=== PATIENT | male | born 1955 | race Caucasian/White ===

== ENCOUNTER 2023-09-03 14:13 | Emergency (ER) | payer MEDICARE, OTHER, SELFPAY ==
[2023-09-03] VITALS (14 sets, daily range): BP systolic 140–150; BP diastolic 84–88; PULSE 74–91; RESP 14–20; TEMP 36.9; O2SAT 94–100
--- NOTE | ~2023-09-03 | XR_ITS ---
XR chest 2V DATE: 09/03/2023 15:05 INDICATION: Cough, shortness of breath. Shortness of breath with exertion for 2 weeks. TECHNIQUE: PA and lateral views COMPARISON: None FINDINGS: Bilateral pulmonary hyperinflation with increased retrosternal airspace and relative flatte elena the diaphragm, consistent with chronic obstructive pulmonary disease. No pulmonary infiltrate or consolidation, pleural effusion or pulmonary vascular congestion or pneumo thorax is detected. Normal heart size. No hilar or mediastinal enlargement is noted. There is mild thoracic levoscoliosis. IMPRESSION: COPD Reviewed, dictated and finalized at location B. H OPERATOR IMPRESSION: COPD
--- NOTE | ~2023-09-03 | CT_ITS ---
EXAMINATION: CTA chest PE protocol DATE: 09/03/2023 17:36 INDICATION: shortness of breath TECHNIQUE: Computed tomography angiography (CTA) of the chest was performed with 100 mL Omnipaque-350 intravenous contrast timed to evaluate the pulmonary arteries. Coronal maximum intensity projection 3D-reconstructions were created by the technologist. The dose-length product (DLP) was 219.98 mGy-cm. Automated exposure control and iterative reconstruction technique were employed. COMPARISON: X-ray chest, same date. FINDINGS: Lung parenchyma and airways: Biapical pleural scarring. Senescent/emphysematous change. Pleura: Unremarkable. Thoracic inlet, axillae and chest wall: Unremarkable. Thoracic aorta: Mild atherosclerotic calcification. Mediastinum: Normal. Heart and pericardium: Normal. Coronary artery calcifications: Mild. Upper abdomen: No significant finding. Bones: No acute osseous finding. Pulmonary arteries: Study quality: Adequate. No pulmonary emboli detected. IMPRESSION: No CT evidence of acute pulmonary embolus. No acute intrathoracic process detected. Reviewed, dictated and finalized at location K. TERIA ASSOCIATE
[2023-09-03 15:36] LABS: Influenza A QL RT-PCR Negative (Negative); Influenza B QL RT-PCR Negative (Negative); RSV RNA, RT-PCR Negative (Negative); SARS-CoV-2 RNA PCR Negative (Negative)
--- NOTE | 2023-09-03 15:46 | ECG_ITS ---
Measurements Intervals [place] Rate: 85 P: 81 DE: 145 QRS: 86 QRSD: 95 T: 77 QT: 357 QTc: 427 Interpretive Statements SINUS RHYTHM BASELINE ARTIFACT- I, III, AVR, AVL, AVF NORMAL ECG NO PREVIOUS ECG AVAILABLE FOR COMPARISON Electronically Signed On 09-03-2023 16:31:30 INTERNATIONAL TRADE TEACHER by Mikhail Butcher D.O.
--- NOTE | 2023-09-03 16:02 | ED.SOB ---
HPI - SOB/Dyspnea General Chief Complaint: Shortness of Breath/Dyspnea Stated Complaint: sob Time Seen by Provider: 09/03/23 15:44 Source: patient Mode of arrival: ambulatory Limitations: no limitations History of Present Illness HPI Narrative: 68-year-old male with history of Hodgkin's lymphoma on suppressive therapy presenting with shortness of breath ongoing for the last few weeks. He says he gets short of breath when he exerts himself but otherwise has no complaints. Occasionally has had a cough and some congestion. No history of smoking but he has been around a lot of grain his whole life as he is a morales. No fevers. Related Data Home Medications Medication Instructions Recorded Confirmed multivitamin,[id number] 1 tablet PO DAILY 09/04/19 10/09/19 (Complete Multivitamin tablet) Allergies Allergy/AdvReac Type Severity Reaction Status Date / Time No Known Allergies Allergy Verified 09/03/23 14:44 Review of Systems Review of Systems: All systems reviewed & are unremarkable except as noted in HPI and below (HPI) [facility] Family History Family History Father Hypertension Social History Social History Smoking status: Never smoker Alcohol intake: never Substance use: never Substance use type: does not use Living arrangements: with family Exam Narrative: Constitutional: Generally well appearing, no acute distress Head: Atraumatic, no deformities. Eyes: Pupils equal, round, and reactive to light. Neck: Supple, no tracheal deviation, no JVD. ENMT: Mucous membranes moist Cardiovascular: S1, S2 auscultated. No murmurs, rubs, or gallops. No S3/S4. Normal Distal pulses. No peripheral edema. Respiratory: Lung sounds slightly diminished but equal. No wheezes, rales, or rhonchi. Gastrointestinal: Abdomen was soft and non-tender. Non-distended. No rebound or guarding. Genitourinary: Deferred Musculoskeletal: Normal muscle tone and bulk. No obvious deformities or tenderness over extremities. Skin: No rashes. Neurological: Strength 5/5 in extremities. Cranial nerves I-XII grossly intact. Distal sensation intact. Mental Status: Awake, alert and oriented x3. Follows commands Course Vital Signs Vital signs: Vital Signs Temperature 36.9 C 09/03/23 14:40 Pulse Rate 91 09/03/23 14:40 Respiratory Rate 20 09/03/23 14:40 Blood Pressure 150/85 H 09/03/23 14:40 Pulse Oximetry 100 09/03/23 14:40 Oxygen Delivery Room Air 09/03/23 14:40 Temperature 36.9 C 09/03/23 14:40 Pulse Rate 74 09/03/23 16:11 Respiratory Rate 14 09/03/23 16:08 Blood Pressure 150/85 H 09/03/23 14:40 Pulse Oximetry 100 09/03/23 16:10 Oxygen Delivery Room Air 09/03/23 16:10 MDM - SOB/Dyspnea MDM Narrative Medical decision making narrative: 68-year-old male presenting with shortness of breath on exertion for the last few weeks. On exam he is slightly hypertensive vitals are otherwise regular. Saturating 100% on room air. No respiratory distress at all. He got a breathing treatment prior to me seeing him and his lungs sound quite clear, slightly diminished but no significant abnormalities. No signs of fluid overload. Concern for potentially COPD his chest x-rays reading COPD as the cause, possibly could be CHF, ACS or heart failure. Given breathing treatment and some dexamethasone. Obtaining D-dimer, cardiac workup on patient. EKG obtained at 4:21 p.m. shows sinus rhythm, normal intervals, no ST elevations or depressions. Impression: No STEMI Labs, imaging reviewed and interpreted. D-dimer elevated so I did obtain a CTA chest. Labs show no focal abnormalities. CTA does show evidence of pulmonary scarring and likely COPD. Patient has a long-time morales reports a long history of inhaling grain dust. Never a smoker. Suspect likely pulmonary fibrosis versus COPD in this
--- NOTE | 2023-09-03 16:10 | PCRCNOTE ---
Duoneb Tx. given at 1600. Unable to scan in medication.
[2023-09-03 16:35] LABS: D Dimer 2.64 ug/mL (<0.48)
--- NOTE | 2023-09-03 16:38 | PC.NURSE ---
pt ambulated with tech and O2 sat was 100% the entire time with steady gait and no assist
[2023-09-03 16:39] LABS: Basophils Percent Auto 0.6 % (0.2-1.2); Eosinophils Absolute Auto 0.1 K/mm3 (0-0.3); Hematocrit 39.4 % (42.0-52.0); Hemoglobin 12.7 g/dL (14.0-18.0); Immature Granulocyte Absolute 0.05 K/mm3 (0.00-0.031); Lymphocytes Absolute Auto 0.66 K/mm3 (0.9-3.2); Lymphocytes Percent Auto 12.7 % (18.3-44.2); Mean Corpuscular HGB Conc 32.2 g/dl (32-36); Mean Corpuscular Hemoglobin 33.3 pg (26-34); Mean Corpuscular Volume 103.4 fl (80-100); Mean Platelet Volume 9.4 fl (7.4-10.4); Monocytes Absolute Auto 0.6 K/mm3 (0.1-0.6); Monocytes Percent Auto 12.4 % (2.6-8.5); Neutrophils Absolute Auto 3.8 K/mm3 (1.3-6.7); Neutrophils Percent Auto 72.3 % (45.5-73.1); Platelet Count Result 213 k/mm3 (150-375); Red Blood Count 3.81 M/mm3 (4.6-6.20); Red Cell Distribution Width 11.6 % (11.5-14.5); White Blood Count 5.2 K/mm3 (4.5-10.0)
[2023-09-03] MEDS: SODIUM CHLORIDE 0.9% IV 1,000 ML 999 ML IV CONT (16:41)
[2023-09-03 16:58] LABS: Alanine Aminotransferase 16 U/L (6-50); Albumin Level 4.1 g/dL (3.5-5.1); Alkaline Phosphatase 58 U/L (38-126); Anion Gap 8 mmol/L (8-16); Aspartate Amino Transferase 25 U/L (17-59); Bilirubin,Total 1.3 mg/dL (0.2-1.3); Blood Urea Nitrogen 22 mg/dL (9-20); Calcium 8.9 mg/dL (8.4-10.2); Carbon Dioxide 26 mmol/L (22-30); Chloride 103 mmol/L (98-107); Estimated CRCL calculation 56 ml/min; Estimated Glomerular Filt Rate > 60; Glucose 81 mg/dL (65-110); Potassium 4.1 mmol/L (3.4-5.0); Sodium 137 mmol/L (137-145)
[2023-09-03 17:07] LABS: NT Pro B Type Natriuretic Pept 88 pg/mL (19.9-100)
[2023-09-03] MEDS: IPRATROPIUM 0.5 MG/ALBUTEROL SULFATE 2.5 MG AMPUL.NEB 3 ML INHALATION (17:30)
== END 2023-09-03 18:40 | disposition home or self-care (01) ==
PROVIDERS: Emergency Medicine; Emergency Provider Emergency Medicine
DX: J84.10 Pulmonary fibrosis, unspecified (principal); Z20.822 Contact with and (suspected) exposure to COVID-19; Z85.71 Personal history of Hodgkin lymphoma
CPT/HCPCS: 36415; 71046; 71275; 80053; 83880; 85025; 85380; 87637; 93005; 94640; 96361; 96374; 99284; J1100; J7030; Q9967

== ENCOUNTER 2024-05-23 14:32 | Emergency (ER) | payer MEDICARE, OTHER, SELFPAY ==
--- NOTE | ~2024-05-23 | XR_ITS ---
EXAM: XR finger 5th RT min 2V DATE: 05/23/2024 14:52 HISTORY: amputation DISTAL 5TH . COMPARISON: None available. FINDINGS: Detail obscured by overlying bandage material. This digit distal phalange amputation, with a small distal phalange fragment remaining along the dorsal aspect of the middle phalange. Otherwise , no fracture or dislocation. Mild scattered degenerative change IMPRESSION: Near-complete right fifth distal phalange amputation. Reviewed, dictated and finalized at location K.
[2024-05-23 14:36] VITALS: BP 135/73; PULSE 87; RESP 16; TEMP 36.6; O2SAT 99
--- NOTE | 2024-05-23 14:45 | ED.WOUNDLAC ---
HPI - Wound/Laceration General Chief Complaint: Wound/Laceration Stated Complaint: finger vs equipment Time Seen by Provider: 05/23/24 14:45 Focused HPI: This is a 68-year-old male that presents to the emergency department for right 5th finger injury. Reports he amputated the tip of his finger and farming equipment. He is not up-to-date on tetanus vaccination. GENERAL: Well-appearing, well-nourished, and in no acute distress. HEAD: Normocephalic, atraumatic. CHEST: Clear to auscultation. ?No respiratory distress. HEART: Regular rate and rhythm.? NEURO: ?Alert and oriented x3. Patient screened in triage and initial orders placed.? ?Additional care and disposition to be based upon?diagnostic testing and treatment. Related Data Home Medications Medication Instructions Recorded Confirmed multivitamin,[id number] 1 tablet PO DAILY 09/04/19 10/09/19 (Complete Multivitamin tablet) Allergies Allergy/AdvReac Type Severity Reaction Status Date / Time No Known Allergies Allergy Verified 05/23/24 15:05 Review of Systems Review of Systems: CONSTITUTIONAL: Denies fever SKIN: Reports laceration All systems reviewed & are unremarkable except as noted in HPI and below PMFSH Past Medical History Medical History (Updated 05/23/24 @ 16:08 by Cortney Izquierdo PA-C) No active medical problems Family History Family History Father Hypertension Social History Social History Smoking status: Never smoker Alcohol intake: never Substance use: never Substance use type: does not use Living arrangements: with family Exam Narrative: GENERAL: Well-appearing, well-nourished, and in no acute distress. HEAD: Normocephalic, atraumatic. EYES: EOMI. EXTREMITIES: Decreased active ROM in the right 5th finger with complete amputation of the distal phalanx SKIN: Warm, dry, no rash. NEURO: No focal deficits. Alert and oriented x3. PSYCH: Normal mood and affect Course Course Emergency Course: patient and family in agreement with plan of care Consultations Consultation #1: Spoke with Lucia, plastic surgeon, Dr. Ayala, recommends transfer to the ER Date: 05/23/24 Consultation #2: Spoke with ER Dr. Gomez who accepts patient as transfer to [place] Date: 05/23/24 Vital Signs Vital signs: Vital Signs Temperature 97.8 F 05/23/24 14:36 Pulse Rate 87 05/23/24 14:36 Respiratory Rate 16 05/23/24 14:36 Blood Pressure 135/73 05/23/24 14:36 Pulse Oximetry 99 05/23/24 14:36 Temperature 97.8 F 05/23/24 14:36 Pulse Rate 87 05/23/24 14:36 Respiratory Rate 16 05/23/24 14:36 Blood Pressure 135/73 05/23/24 14:36 Pulse Oximetry 99 05/23/24 14:36 MDM - Wound/Laceration MDM Narrative Medical decision making narrative: Patient presents the emergency department for amputation of his right 5th finger distal phalanx. Patient's wound was irrigated and covered with a bandage. He was updated on tetanus vaccination and given a dose of Ancef. We do not have Hand surgery online marketing analyst today. Transfer has been arranged to [place] ER for further management by specialist Differential Diagnosis Differential diagnosis: Likely laceration, avulsion of skin and other ( amputation) Imaging Data Radiologist's impression: ITS Impressions Finger X-Ray 05/23/24 15:03 IMPRESSION: Near-complete right fifth distal phalange amputation. Critical Care Time Critical Care Time Critical Care Time: No Discharge Plan Discharge Clinical Impression: Amputated finger Patient Disposition: Acute Care Hospital Condition: Stable Additional Instructions: Report directly to [place] ER for further management by hand surgeon. Do not eat or drink Prescriptions: No Action Complete Multivitamin Tablet 1 tablet PO DAILY albuterol sulfate 90 mcg/actuation HFA
[2024-05-23] MEDS: WATER, STERILE FOR INJECTION 10 ML VIAL XX (15:12)
[2024-05-23] MEDS: ceFAZolin SODIUM 1 GM VIAL IM (15:12)
[2024-05-23] MEDS: TETANUS,DIPHTHERIA,AC PERTUSSIS ADULT (0.5 ML) BOOSTRIX IM (15:12)
--- NOTE | 2024-05-23 15:55 | PC.NURSE ---
Pt declines to go to [facility] via ems. is going to drive pt to [place].
== END 2024-05-23 16:11 | disposition short-term general hospital (02) ==
PROVIDERS: Emergency Provider Physician Assistant
DX: S68.126A Partial traumatic metacarpophalangeal amputation of right little finger, initial encounter (principal); W30.9XXA Contact with unspecified agricultural machinery, initial encounter; Z23 Encounter for immunization
CPT/HCPCS: 73140; 90471; 90715; 96372; 99283; J0690

== ENCOUNTER 2024-12-01 07:09 | Emergency (ER) | payer MEDICARE, OTHER, SELFPAY ==
--- NOTE | ~2024-12-01 | XR_ITS ---
EXAM/PROCEDURE: XR chest 2V - 12/01/2024 07:59 CDT HISTORY: 69 years old Male with LT sided cp X2 days TECHNIQUE: Two view(s) of the chest. COMPARISON: 09/03/2023 FINDINGS: LUNGS/ PLEURA: Lungs are hyperinflated with flattening of the diaphragm and increased lung markings i n both upper lobes, findings seen with COPD. No focal consolidation. No appreciable pneumothorax or l arge pleural effusion. Mild perihilar bronchial wall thickening may represent bronchiolitis. Airspace opacity in the left lingular area may represent pneumonia in appropriate clinical settings. HEART/ MEDIASTINUM: Heart appears normal in size. BONES: Degenerative changes. OTHER: Visualized upper abdomen is unremarkable. IMPRESSION: 1. Airspace opacity in the left lingular area may represent pneumonia in appropriate clinical settin gs. Clinical correlation is recommended. Short-term follow-up chest radiograph is recommended after a ppropriate clinical therapy. 2. Findings concerning for bronchiolitis. Reviewed, dictated and finalized at location [facility]. IMPRESSION: 1. Airspace opacity in the left lingular area may represent pneumonia in appro priate clinical settings. Clinical correlation is recommended. Short-term follo w-up chest radiograph is recommended after appropriate clinical therapy. 2. Findings concerning for bronchiolitis.
--- NOTE | ~2024-12-01 | CT_ITS ---
Clinical Indication: Chest pain, lymphoma CT Scan of the Chest with Contrast: Technique: Contiguous sections were acquired throughout the chest after intravenous administration of 100 cc of Omnipaque 350. Dose reduction technique was used on this scan by utilizing automated expos ure control and iterative reconstruction technique. The dose-length product (DLP) was 210.24 mGy-cm. COMPARISON: 09/03/2023 Findings: There is no evidence of any significant mediastinal, hilar or axillary lymphadenopathy. There is no f illing defect in the pulmonary arterial tree to suggest pulmonary embolus. There is no evidence of ao rtic dissection or aneurysm. Minimal left pleural effusion present. No right pleural effusion. No pericardial effusion. Lingular consolidation is present, suspicious for pneumonia. Probable focal pneumonia or atelectasis in the anteromedial, inferior right middle lobe. Images through the upper abdomen reveal no abnormalities. Impression: No evidence of pulmonary embolus, aortic dissection, or aortic aneurysm. Lingular pneumonia. Probable focal additional pneumonia right middle lobe versus focal atelectasis. Minimal left pleural effusion. Reviewed, dictated and finalized at [facility]. Impression: No evidence of pulmonary embolus, aortic dissection, or aortic aneurysm. Lingular pneumonia. Probable focal additional pneumonia right middle lobe versu s focal atelectasis. Minimal left pleural effusion.
--- NOTE | 2024-12-01 07:12 | ECG_ITS ---
Test Date: 2024-12-01 07:19:09 Measurements Intervals [place] Rate: 93 P: 92 DC: 141 QRS: 87 QRSD: 94 T: 75 QT: 336 QTc: 419 Interpretive Statements SINUS RHYTHM POSSIBLE LEFT ATRIAL ENLARGEMENT BASELINE ARTIFACT- I, II, III, AVR, AVL, V1-V2 BORDERLINE ECG No previous ECG available for comparison Electronically Signed On 12-01-2024 08:19:22 CDT by Mikhail Butcher D.O.
--- OUTSIDE RECORDS SUMMARY | 2024-12-01 07:12 | XMS_ITS | Referral Summary ---
Author Organization [facility] Address [address] [place] [address] Care Team Providers Care Market Intelligence Consultant Name Role Phone No, Physician Primary Care Provider [phone] Allergies No known active allergies Medications acyclovir (ZOVIRAX) 400 mg tabletIndications: Other types of follicular lymphoma, unspecified site (HCC),Persons encountering health services in other specified circumstances TAKE 1 TABLET (400 MG TOTAL) BY MOUTH 2 (TWO) TIMES A DAY FOR SHINGLES PREVENTION. 180 tablet 3 4 Active albuterol HFA (PROVENTIL HFA,VENTOLIN HFA,PROAIR HFA) 90 mcg/actuation inhaler INHALE ONE PUFF FOUR TIMES DAILY NEEDED FOR SHORTNESS OF BREATH OR WHEEZING 4 Active multivit,calc,min/ FA/K1/lycop (ONE-A-DAY MEN'S COMPLETE ORAL) Take by mouth A ctive bacitracin 500 unit/gram ointment Apply topically daily 120 g 4 Active Active Problems Problem Noted Date Diagnosed Date Need for immunization against influenza 07/06/20 24 SOB (shortness of breath) 10/05/2023 LAD (lymphadenopathy) 07/14/2023 Other types of follicular lymphoma, unspecified site 07/03/2021 Persons encountering health services in other specified circumstances 07/03/2021 Cervicalgia 11/25/2011 Immunizations Immunization Administration Dates Next Due Influenza, Quadrivalent, Seema l Culture-based MDCK, Preservative Free, Antibiotic Free, Intramuscular 07/08/2023,06/12/2021 Influenza, Quadrivalent, Hig h Dose, Preservative Free, Intrr 06/28/2022 Influenza, Trivalent, High D ose, Split, Preservative Free, Intramuscular 07/06/2024 Moderna SARS-CoV-2 Monovalent Vaccination (12+ Y RS) 11/12/2020,10/15/2020 Pfizer SARS-CoV-2 Monovalent Vaccination (12+ Yrs) PURPLE 06/25/2021 Pneumococcal Conjugate PCV 13 07/03/2021 Social History Tobacco Use Types Packs/Day Years Used Date Smoking Tobacco: Never Smokeless Tobacco: Former Tobacco Cessation:Counseling Given: Not Answered Alcohol Use Standard Drinks/Week Comments Never 0 (1 standard drink = 0.6 oz pur e alcohol) AUDIT-C Answer Date Recorded Q1: How often do you have a drink containing alcohol? Never 07/28/2023 Q2: How many drinks containi ng alcohol do you have on a typical day when you are drinking? Patient does not drink Frequency of Binge Drinking Not on file 01/2023 Personal Safety Answer Date Recorded Have you ever been in or are you currently in a harmful physical or emotional relationship or is someone making you feel afraid or unsafe? 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 Gender Identity Male 01/30/2021 8:20 PM CDT Sexual Orientation Straight 01/30/2021 8: 20 PM CDT Last Filed Vital Signs Vital Sign Reading Time Taken Comments Blood Pressure 144/77 07/06/2024 10:15 AM POTTERY KILN BUILDER Pulse 75 07/06/2024 10:15 AM POTTERY KILN BUILDER Temperature 36.6 C (97.9 F) 07/06/2024 10:15 AM POTTERY KILN BUILDER Respiratory Rate 18 07/06/2024 10:15 AM POTTERY KILN BUILDER Oxygen Saturation 98% 07/06/2024 10:15 AM POTTERY KILN BUILDER Inhaled Oxygen Concentration - - Weight 63.3 kg (139 lb 9.6 oz) 07/06/2024 10:15 AM POTTERY KILN BUILDER Height 180.3 cm (5' 11 ) 05/23/2024 5:05 PM CDT Body Mass Index 19.47 05/23/2024 5:05 PM CDT Plan of Treatment Not on file Procedures Procedure Name Priority Date/Time Associated Diagnosis Comments HEPATITIS C ANTIBODY Routine 06/12/2021 7:02 AM CDT Lymphadenopathy from Last 3 Months or Most Recently Relevant to Health Maintenance Results * Hepatitis C antibody (06/12/2021 7:02 AM CDT) Hep C Ab Nonreactive Nonreactive JOSE HOLLY Comment:Antibodies to HCV no t detected. Does NOT exclude the possibility of recent exposure to HCV. Blood 06/12/2021 7:02 AM CDT 06/12/2021 8:04 AM CDT us Suzanne Bond NP LAB MICROBIOLOGY - GENERAL ORDERABLES Edited Result - Final [facility] Department [place] [address] from Last 3 Months or Most Recently Relevant to Health Maintenance Insurance MEDICARE [facility] MEDICARE MEDICARE Member Subscriber Plan / Payer (Ef fective 2021-Present) Name:[place] Member ID:[id number] Relation to Subscriber:Self Name:[place] Subscriber ID:[id number] Payer ID:[id number] Group ID:Not on file Type:MEDICARE TRADITIONAL Address: [place] [address] [facility] MEDIC[facility] Advance Directives For more information, please contact: [phone] * Full Code (Latest Code Status on File) Date Activated Date Inactivated Comments 05/21/2021 8:36 AM 05/22/2021 4:53 AM * Full Code Date Activated Date Inactivated Comments 05/21/2021 8:36 AM 05/21/2021 8:36 AM Care Teams Market Intelligence Consultant Relationship Specialty Start Date End Date No, Physician PCP - General 03/27/21
--- OUTSIDE RECORDS SUMMARY | 2024-12-01 07:12 | XMS_ITS | Clinical Summary ---
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 N/A Medical History Medical History Date Comments Cancer (HCC) Non Hodgkin's lymphoma (HCC) Family History Medical History Relation Name Comments false prostate cancer/ surgery/ 24hrs after going home Brother 1 No Known Problems Brother 2 No Known Problems Brother 3 No Known Problems Brother 4 Alzheimer's disease Father Kidney failure Mother ?stomach/intestine problem Sister 1 Relation Name Status Comments Brother 1 Brother 2 Alive Brother 3 Alive Brother 4 Alive Father Mother Sister 1 Alive Sister 2 Alive Sister 3 Alive Sister 4 Alive Social History Tobacco Use Types Packs/Day Years [...] on file Legal Sex Male 1:09 PM WIRE SAWYER Gender Identity Male 01/30/2021 8:20 PM CDT Sexual Orientation Straight 01/30/2021 8: 20 PM CDT Obstetrics History Last Filed Vital Signs Vital Sign Reading Time Taken Comments Blood Pressure 144/77 07/06/2024 10:15 AM WIRE SAWYER Pulse 75 07/06/2024 10:15 AM WIRE SAWYER Temperature 36.6 C (97.9 F) 07/06/2024 10:15 AM WIRE SAWYER Respiratory Rate 18 07/06/2024 10:15 AM WIRE SAWYER Oxygen Saturation 98% 07/06/2024 10:15 AM WIRE SAWYER Inhaled Oxygen Concentration - - Weight 63.3 kg (139 lb 9.6 oz) 07/06/2024 10:15 AM WIRE SAWYER Height 180.3 cm (5' 11 ) 05/23/2024 5:05 PM CDT Body Mass Index 19.47 05/23/2024 5:05 PM CDT Plan of Treatment Health Maintenance Due Date Last Done Comments Colon Cancer Screening-Colonoscopy 1955 Depression Screening 1955 DTaP/Tdap/Td Vaccine (1 - Tdap) 1964 Hepatitis B Screening 1971 Zoster Vaccine (1 of 2) 1972 Well Visit 65+ 2018 Pneumococcal vaccine 65+ (2 of 2 - PPSV23) 08/28/2021 07/03/2021 Covid-19 Vaccine (5 - 2023-2 5 season) 2024 06/28/2022, 06/25/2021, 11/12/2020, Additional history exists Fall Risk Assessment 07/28/2024 07/28/2023 Hepatitis C Screening Completed 06/12/2021 Influenza Vaccine Completed 07/06/2024, , 06/28/2022, Additional history exists Procedures Procedure Name Priority Date/Time Associated Diagnosis [...] 7:02 AM CDT 06/12/2021 8:04 AM CDT Suzanne Bond NP LAB MICROBIOLOGY - GENERAL ORDERABLES Edited Result - Final [facility] Department [place] [address] from Last 3 Months or Most Recently Relevant to Health Maintenance Insurance MEDICARE [facility] MEDICARE MEDICARE [facility] MEDICARE Advance Directives For more information, please contact: [phone] * Full Code (Latest Code Status on File) Date Activated Date Inactivated Comments 05/21/2021 8:36 AM 05/22/2021 4:53 AM * Full Code Date Activated Date Inactivated Comments 05/21/2021 8:36 AM 05/21/2021 8:36 AM Care Teams Patient Escort Relationship Specialty Start Date End Date No, Physician PCP - General 03/27/21
--- OUTSIDE RECORDS SUMMARY | 2024-12-01 07:12 | XMS_ITS | Encounter Summary ---
Author Organization [facility] Address [address] [place] [address] Phone Care Team Providers Care Sales And Distribution Clerk Name Role Phone No, Physician Primary Care Provider [phone] Encounter Details Date Type Department Care Team (Late st Contact Info) Description 06/10/2021 Telephone [facility] Oncology [address] [facility] 7th [place] [address] [place] [address] Suzanne Bond, JEROME [address] [place] [address] Social History Tobacco Use Types Packs/Day Years Used Date Smoking Tobacco: Never Smokeless Tobacco: Never Sex and Gender Information Value Date Recorded Sex Assigned at Not on file 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
--- OUTSIDE RECORDS SUMMARY | 2024-12-01 07:12 | XMS_ITS ---
Author Organization [facility] Address [address] [place] [address] Care Team Providers Care Corner Former Name Role Phone No, Physician Primary Care Provider [phone] Active Problems Problem Noted Date Diagnosed Date Need for immunization against influenza 07/06/20 SOB (shortness of breath) 10/05/2023 LAD (lymphadenopathy) 07/14/2023 Other types of follicular lymphoma, unspecified site 07/03/2021 Persons encountering health services in other specified circumstances 07/03/2021 Cervicalgia 11/25/2011 Current Treatment and Therapy Plans RiTUXimab Maintenance Every 12 Weeks - Lymphoma* Plan Start Date:02/19/2022 Plan Provider:Susan Gotti MD Linked Problems Other types of follicular ly mphoma, unspecified site (HCC)Persons encountering health services in other specified circumstances Treatment Medications riTUXimab-abbs (TRUXIMA) IVPB in 500 mLr iTUXimab-pvvr (RUXIENCE) IVPB in 500 mL Other Current Plans 2023 - 2024 Influenza Vaccine ([facility])* Plan Start Date: 07/06/2024 Plan Provider:Nisha Ramirez MD Linked Problems Need for immunization agains t influenza Treatment Medications No medications scheduled. Past Treatment and Therapy Plans Line Care Plan Name Start Date Discontinue Date Treatment Medications Discontinue Reason Plan Provider IV MAINTENANCE THERAPY PLAN 11/27/2021 11/02/2023 No medications scheduled. Automatic discontinuation of dormant plans Shyanne Anderson MD Oncology Chemotherapy Treatment Plan Name Start Date Discontinue Date Treatment Medications Discontinue Reason Plan Provider Cycles Bendamustine / RiTUXimab 28 Day Cycles 07/10/20 21 01/05/2022 bendamustine (BENDEKA) IVPB in 50 mLriTUXimab-pv vr (RUXIENCE) IVPB in 500 mL Therapy Complete Susan Gotti MD 6 of 6 cycles completed Specialty Infusion Treatment Plan Name Start Date Discontinue Date Treatment Medications Discontinue Reason Plan Provider Evusheld 300 mg/300 mg Standard Dose 02/19/2022 10/19/2022 No medications scheduled. Orders Susan Gotti MD Lifetime Dose Tracking * Chemical Lifetime Dose Automatic Entry Manual Entr y DLP 149 mGycm 149 mGycm 0 mGycm
[2024-12-01 07:16] VITALS: BP 156/81; PULSE 90; PULSE 92; RESP 18; RESP 19; TEMP 36.6; O2SAT 95; O2SAT 98
[2024-12-01 07:24] VITALS: O2SAT 100
[2024-12-01 07:25] VITALS: O2SAT 99
[2024-12-01 07:29] VITALS: PULSE 92
[2024-12-01 07:49] LABS: Basophils Percent Auto 0.2 % (0.2-1.2); Eosinophils Percent Auto 0.4 % (0-4.4); Hematocrit 40.6 % (42.0-52.0); Hemoglobin 13.4 g/dL (14.0-18.0); Immature Granulocyte Absolute 0.06 K/mm3 (0.00-0.031); Immature Granulocyte Percent A 0.6 % (0-0.5); Lymphocytes Absolute Auto 0.73 K/mm3 (0.9-3.2); Lymphocytes Percent Auto 6.9 % (18.3-44.2); Mean Corpuscular Hemoglobin 33.1 pg (26-34); Mean Corpuscular Volume 100.2 fl (80-100); Mean Platelet Volume 10.1 fl (7.4-10.4); Neutrophils Absolute Auto 8.8 K/mm3 (1.3-6.7); Neutrophils Percent Auto 82.9 % (45.5-73.1); Platelet Count Result 223 k/mm3 (150-375); Red Blood Count 4.05 M/mm3 (4.6-6.20); White Blood Count 10.7 K/mm3 (4.5-10.0)
[2024-12-01 07:56] LABS: Alanine Aminotransferase 15 U/L (6-50); Albumin Level 4.1 g/dL (3.5-5.1); Alkaline Phosphatase 70 U/L (38-126); Anion Gap 6 mmol/L (4-12); Aspartate Amino Transferase 22 U/L (17-59); Bilirubin,Total 1.7 mg/dL (0.2-1.3); Blood Urea Nitrogen 17 mg/dL (9-20); Calcium 8.9 mg/dL (8.4-10.2); Carbon Dioxide 31 mmol/L (22-30); Chloride 100 mmol/L (98-107); Estimated CRCL calculation 55 ml/min; Estimated Glomerular Filt Rate > 60; Glucose 109 mg/dL (65-110); Lipase 50 U/L (23-300); Potassium 4.6 mmol/L (3.4-5.0); Sodium 137 mmol/L (137-145)
[2024-12-01 08:16] LABS: Partial Thromboplastin Time 27.2 Seconds (22.3-36.8); Troponin I < 0.012 ng/mL (0.000-0.034)
[2024-12-01 08:20] LABS: NT Pro B Type Natriuretic Pept 93 pg/mL (19.9-100)
[2024-12-01 08:31] LABS: D Dimer 2.65 ug/mL (<0.48)
--- NOTE | 2024-12-01 08:51 | ED.GENADULT ---
HPI - General Adult General Chief complaint: Chest Pain Stated complaint: chest pain, cough pain worse with cough Time Seen by Provider: 12/01/24 07:16 History of Present Illness HPI narrative: This is a 69-year-old male with history of lymphoma in remission presenting for chest pain. Patient has been having a cough for the last 1 week. He has not developed left-sided chest pain. He denies fevers chills, shortness of breath abdominal pain or urinary symptoms. No history of DVT or PE. No acute edema of the lower extremities. Related Data Home Medications ?Medication ?Instructions ?Recorded ?Confirmed ?Last Taken ?Type multivitamin,[id number] 1 tablet PO DAILY 09/04/19 10/09/19 09/13/19 History (Complete Multivitamin tablet) Allergies Allergy/AdvReac Type Severity Reaction Status Date / Time No Known Allergies Allergy Verified 05/23/24 15:05 [facility] Past Medical History Medical History No active medical problems Family History Family History Father Hypertension Social History Social History Smoking status: Never smoker Alcohol intake: never Substance use: never Substance use type: does not use Living arrangements: with family Exam Narrative: APPEARANCE: No apparent distress. Head: atraumatic. EYES: EOMI, NOSE: Atraumatic NECK: Trachea midline RESPIRATORY: No increased rate of breathing CTAB, speaking in full sentences, 100% on room air CARDIOVASCULAR: RRR, no peripheral edema ABDOMINAL: Non-distended soft nontender MUSCULOSKELETAl: No obvious deformities NEURO: Alert. Moving 4/4 extremities SKIN:: Warm, dry. Normal color PSYCHIATRIC: Normal affect Course Vital Signs Vital signs: Vital Signs Temperature 97.8 F 12/01/24 07:16 Pulse Rate 90 12/01/24 07:16 Respiratory Rate 18 12/01/24 07:16 Blood Pressure 156/81 H 12/01/24 07:16 Pulse Oximetry 95 12/01/24 07:16 Oxygen Delivery Room Air 12/01/24 07:16 Temperature 97.8 F 12/01/24 07:16 Pulse Rate 92 12/01/24 07:29 Respiratory Rate 19 12/01/24 07:16 Blood Pressure 156/81 H 12/01/24 07:16 Pulse Oximetry 99 12/01/24 07:25 Oxygen Delivery Room Air 12/01/24 07:25 Medical Decision Making [facility] Narrative Medical decision making narrative: -Course: This is a 69-year-old male presenting with left-sided chest pain. Workup significant for left lingular pneumonia. Otherwise patient's workup/vital signs are unremarkable. We discussed admission vs discharge and he would prefer a trial of outpatient management. He will be discharged on Augmentin and doxycycline. I did discuss strict return precautions as he is elderly and has some comorbidities. Both he and his were comfortable returning if things are getting worse. Patient discharged with return precautions -DDX includes but is not limited to: Pneumonia, PE, bronchitis, viral syndrome Vital Signs Vital Signs: Vital Signs Temperature 97.8 F 12/01/24 07:16 Pulse Rate 90 12/01/24 07:16 Respiratory Rate 18 12/01/24 07:16 Blood Pressure 156/81 H 12/01/24 07:16 Pulse Oximetry 95 12/01/24 07:16 Oxygen Delivery Room Air 12/01/24 07:16 Temperature 97.8 F 12/01/24 07:16 Pulse Rate 92 12/01/24 07:29 Respiratory Rate 19 12/01/24 07:16 Blood Pressure 156/81 H 12/01/24 07:16 Pulse Oximetry 99 12/01/24 07:25 Oxygen Delivery Room Air 12/01/24 07:25 Lab Data 12/01/24 07:30 12/01/24 07:30 Labs: Lab Results 12/01/24 12/01/24 Range/Units 07:30 08:02 WBC 10.7 H (4.5-10.0) K/mm3 RBC 4.05 L (4.6-6.20) M/mm3 Hgb 13.4 L (14.0-18.0) g/dL Hct 40.6 L (42.0-52.0) % MCV 100.2 H (80-100) fl MCH 33.1 (26-34) pg MCHC 33.0 (32-36) g/dl RDW 12.0 (11.5-14.5) % Plt Count 223 (150-375) k/mm3 MPV 10.1 (7.4-10.4) fl Immature Gran % (Auto) 0.6 H (0-0.5) % Neut % (Auto) 82.9 H (45.5-73.1) % Lymph % (Auto) 6.9 L (18.3-44.2) % [place] % (Auto) 9.0 H (2.6-8.5) % Eos % (Auto) 0.4 (0-4.4) % Baso % (Auto) 0.2 (0.2-1.2) % Lymph # (Auto) 0.73 L (0.9-3.2) K/mm3 [place] # (Auto) 1.0 H (0.1-0.6) K/mm3 Eos # (Auto) 0.0 (0-0.3) K/mm3 Baso # (Auto) 0.0 (0.0-0.1) K/mm3 Abs Immat Gran (auto) 0.06 H (0.00-0.031) K/mm3 Absolute Neuts (auto) 8.8 H (1.3-6.7) K/mm3 Absolute Nucleated RBC 0.000 (0.0-0.012) K/mm3 Nucleated RBC % 0.0 (0.0-0.2) % PT 14.0 (11.1-14.7) Seconds INR 1.0 APTT 27.2 (22.3-36.8) Seconds D-Dimer 2.65 H (<0.48) ug/mL Sodium 137 (137-145) mmol/L Potassium 4.6 (3.4-5.0) mmol/L Chloride 100 (98-107) mmol/L Carbon Dioxide 31 H (22-30) mmol/L Anion Gap 6 (4-12) mmol/L BUN 17 (9-20) mg/dL Creatinine 1.03 (0.7-1.3) mg/dL Estim Creat Clear Calc 55 ml/min Estimated GFR > 60 (59 - ) Glucose 109 (65-110) mg/dL Calcium 8.9 (8.4-10.2) mg/dL Total Bilirubin 1.7 H (0.2-1.3) mg/dL AST 22 (17-59) U/L ALT 15 (6-50) U/L Alkaline Phosphatase 70 (38-126) U/L Troponin I < 0.012 (0.000-0.034) ng/mL NT-Pro-B Natriuret Pep 93 (19.9-100) pg/mL Total Protein 7.0 (6.3-8.2) g/dL Albumin 4.1 (3.5-5.1) g/dL Lipase 50 (23-300) U/L Influenza A (RT-PCR) Negative (Negative) Influenza B (RT-PCR) Negative (Negative) RSV (RT-PCR) Negative (Negative) SARS-CoV-2 RNA (RT-PCR) Negative (Negative) Discharge Plan Discharge Clinical Impression: Community acquired pneumonia Patient Disposition: Home Condition: Stable Instructions: Antibiotic Form, Community Acquired Pneumonia (DC) Additional Instructions: You were seen in the emergency department for chest pain. You have pneumonia. Please complete the antibiotics as instructed. If you are getting worse, you develop worsening chest pain, shortness of breath or weakness only return to the ED for re-evaluation. Patient Language: Khmer Prescriptions: New amoxicillin-pot clavulanate 875-125 mg tablet 1 tablet PO Q12H Qty: 20 0RF doxycycline hyclate 100 mg capsule 100 mg PO Q12H Qty: 20 0RF No Action Complete Multivitamin Tablet 1 tablet PO DAILY albuterol sulfate 90 mcg/actuation HFA aerosol inhaler 1 inh inhalation QID PRN (Reason: shortness of breath or wheezing) Qty: 8.5 0RF Follow-up/Referrals: UNKNOWN,DOCTOR [Primary Care Provider] -
[2024-12-01 09:02] LABS: Influenza A QL RT-PCR Negative (Negative); Influenza B QL RT-PCR Negative (Negative); RSV RNA, RT-PCR Negative (Negative); SARS-CoV-2 RNA PCR Negative (Negative)
[2024-12-01] MEDS: AMOXICILLIN/CLAVULANATE K 875-125 MG TAB 1 TABLET PO (09:54)
[2024-12-01] MEDS: DOXYCYCLINE HYCLATE 100 MG TABLET PO (09:54)
[2024-12-01 09:58] VITALS: BP 151/81; RESP 18; TEMP 37.3; O2SAT 99
== END 2024-12-01 09:59 | disposition home or self-care (01) ==
PROVIDERS: Emergency Provider Emergency Medicine
DX: J18.9 Pneumonia, unspecified organism (principal); Z20.822 Contact with and (suspected) exposure to COVID-19; Z85.72 Personal history of non-Hodgkin lymphomas
CPT/HCPCS: 36415; 71046; 71275; 80053; 83690; 83880; 84484; 85025; 85380; 85610; 85730; 87637; 93005; 99284; A9270; Q9967